=== PATIENT | male | born 2000 | race Two or more races ===

== ENCOUNTER 2025-02-09 16:40 | Emergency (ER) | payer MEDICAID, OTHER, SELFPAY ==
[~2025-02-09] VITALS: Ht 172.7 cm; Wt 92.3 kg
--- NOTE | 2025-02-09 17:39 | DVH ---
CLINICAL HISTORY: NECK PAIN TECHNIQUE: CT exam of the cervical spine was performed without intravenous contrast. This exam was pe rformed according to our departmental dose optimization program. Up-to-date CT equipment and radiatio n dose reduction techniques are utilized as appropriate. 25.62 CTDI: 25.62 DLP: 742.05 WID: COMPARISON: None FINDINGS: There is normal cervical alignment. The vertebral body heights are maintained. No acute cervical frac ture or subluxation is identified. No significant central or neural foraminal narrowing is identified . The paraspinous soft tissues are unremarkable. The lung apices are clear. IMPRESSION: 1. No acute fracture or traumatic malalignment.
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
[2025-02-09] MEDS ORDERED: HYDR-4798 PO (19:18)
[2025-02-09] MEDS ORDERED: ZOFR4T PO (19:18)
[2025-02-09] MEDS ORDERED: IBUP-1455 PO (19:18)
[2025-02-09] MEDS ORDERED: CEPH250C PO (19:19)
[2025-02-09] MEDS: HYDROcodone-ACET 10/325MG TAB PO ONE (19:26)
[2025-02-09] MEDS: ONDANSETRON ODT 4 MG TAB PO ONE (19:26)
[2025-02-09] MEDS: KETOROLAC TROMETH 60MG/2ML VIAL IM ONE (19:27)
[2025-02-09] MEDS: LIDOCAINE W/ EPINEPHRINE 1% 20ML VIAL ID ONE (19:32)
[2025-02-09] MEDS: LIDOCAINE 1% HCL (LOCAL ANESTH.) INJ 20ML MDV ONE (19:32)
[2025-02-09 20:21] VITALS: BP 126/71; PULSE 80; RESP 16; TEMP 98.3; O2SAT 100
== END 2025-02-09 20:27 | disposition home or self-care (01) ==
LOC: ER 16:40
DX: S01.81XA Laceration without foreign body of other part of head, initial encounter (principal); S16.1XXA Strain of muscle, fascia and tendon at neck level, initial encounter; S20.219A Contusion of unspecified front wall of thorax, initial encounter; Z88.0 Allergy status to penicillin; V43.52XA Car driver injured in collision with other type car in traffic accident, initial encounter; Y93.89 Activity, other specified; Y92.410 Unspecified street and highway as the place of occurrence of the external cause; Y99.8 Other external cause status
CPT/HCPCS: 12014; 70450; 71046; 72125; 96372; 99285; J1885; J2003; Q0162

== ENCOUNTER 2025-02-14 12:25 | Emergency (ER) | payer MEDICAID ==
[~2025-02-14] VITALS: Ht 172.7 cm; Wt 90.1 kg
[~2025-02-14 12:25] MED LIST: CEPH250C PO; HYDR-4798 PO; IBUP-1455 PO; ZOFR4T PO
[2025-02-14 13:05] VITALS: BP 156/94; PULSE 59; RESP 18; TEMP 98.1; O2SAT 99
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
[2025-02-14] MEDS ORDERED: HYDR-4798 PO (13:10)
[2025-02-14] MEDS: HYDROcodone-ACET 10/325MG TAB PO ONE (13:11)
== END 2025-02-14 13:37 | disposition home or self-care (01) ==
LOC: ER 12:25
DX: R51.9 Headache, unspecified (principal); Z79.899 Other long term (current) drug therapy; Z88.0 Allergy status to penicillin; Z76.0 Encounter for issue of repeat prescription; Z48.00 Encounter for change or removal of nonsurgical wound dressing; V89.2XXA Person injured in unspecified motor-vehicle accident, traffic, initial encounter; Y93.89 Activity, other specified; Y92.488 Other paved roadways as the place of occurrence of the external cause; Y99.8 Other external cause status

== ENCOUNTER 2025-02-18 09:58 | Emergency (ER) | payer MEDICAID ==
[~2025-02-18] VITALS: Ht 172.7 cm; Wt 94.0 kg
[2025-02-18 09:59] VITALS: BP 123/91; PULSE 77; RESP 16; TEMP 97.6; O2SAT 96
--- NOTE | 2025-02-18 10:27 | ED.PDOC ---
History of Present Illness(SKN HPI Comments 24-year-old male presents to the ER for suture removal. The patient reports on having stitches and diana placed at [facility] on the left forehead nine days ago and is requesting for them to be removed. Patient states on taking his infection medication associated with the Cardinal for chronic headache at night. Denies any other symptoms at this time. Chief Complaint: Wound Check Time Seen by MD: 10:20 History of Present Illness: Nurses Notes, Medications, Allergies Allergies: Coded Allergies: Penicillins (Verified Allergy, Unknown, 02/09/25) Home Meds Active Scripts Hydrocodone-Acetaminophen (Hydrocodone Bitartrate/AC 10-325 mg) 1 Tab Tab, 1 TAB PO Q8HP PRN, #10 TAB Prov:GISELA LANDEROS MD 02/14/25 Cephalexin (KEFLEX CAPSULE) 250 Mg Cp, 1 CAP PO QID for 7 Days, #28 CAP Prov:WILLIS GARCIA 02/09/25 Ondansetron Odt 4MG Tab (ZOFRAN PO) 4 Mg Tb, 4 MG PO Q6HP PRN, #10 TAB ODT TAB-DISSOLVE IN MOUTH, THEN SWALLOW Prov:WILLIS GARCIA 02/09/25 Ibuprofen Micronized (Ibuprofen) 800 Mg Tab, 800 MG PO Q8HP PRN, #20 TAB Prov:WILLIS GARCIA 02/09/25 Information Source: Patient Mode of Arrival: Ambulatory Severity: Moderate Timing: Days Duration: Since onset, Days Prehospital treatment: None Location: Head Mechanism: Preceding Wound Object: None Condition of Object: None Wound Type: None History of: None Associated Signs and Symptoms: Pain Past Medical History PAST MEDICAL HISTORY: Denies Surgical History: Denies all surgeries Family History Family History: Reviewed,noncontributory to illness, Unknown Social History Smoker: Non-Smoker Alcohol: Denies ETOH Use Drugs: Denies Drug Use Lives In: Home Constitutional: denies: chills, diaphoresis, fatigue, fever, malaise, sweats, weakness, others EENTM: denies: blurred vision, double vision, ear bleeding, ear discharge, ear drainage, ear pain, ear ringing, eye pain, eye redness, hearing loss, mouth pain, mouth swelling, nasal discharge, nose bleeding, nose congestion, nose pain, photophobia, tearing, throat pain, throat swelling, voice changes, others Respiratory: denies: cough, hemoptysis, orthopnea, SOB at rest, shortness of breath, SOB with excertion, stridor, wheezing, others Cardiovascular: denies: chest pain, dizzy spells, diaphoresis, Dyspnea on exertion, edema, irregular heart beat, left arm pain, lightheadedness, palpitations, PND, syncope, others Gastrointestinal: denies: abdomen distended, abdominal pain, blood streaked bowels, constipated, diarrhea, dysphagia, difficulty swallowing, hematemesis, melena, nausea, poor appetite, poor fluid intake, rectal bleeding, rectal pain, vomiting, others Genitourinary: denies: burning, dysuria, flank pain, frequency, hematuria, incontinence, penile discharge, penile sore, pain, testicle pain, testicle swelling, urgency, others Neurological: denies: dizziness, fainting, headache, left sided numbness, left sided weakness, numbness, paresthesia, pre-existing deficit, right sided numbness, right sided weakness, seizure, speech problems, tingling, tremors, weakness, others Musculoskeletal: denies: back pain, gout, joint pain, joint swelling, muscle pain, muscle stiffness, neck pain, others Integumetry: reports: others (Suture and staple removal of the foreign); denies: bruises, change in color, change in hair/nails, dryness, laceration, lesions, lumps, rash, wounds Allergic/Immunocompromised: denies: Difficulty Healing, Frequent Infections, Hives, Itching, others Hematologic/Lymphatic: denies: anemia, blood clots, easy bleeding, easy bruising, swollen glands, others Endocrine: denies: excessive hunger, excessive sweating, excessive thirst, excessive urination, flushing, intolerance to cold, intolerance to heat, unexplained weight gain, unexplained weight loss, others Psychiatric: denies: anxiety, bipolar disorder, depression, hopeless, panic disorder, schizophrenia, sleepless, suicidal, others All Other Systems: Reviewed and Negative Physical Exam General Appearance: No Apparent Distress, Normal HEENT: Normal ENT Inspection, Pharynx Normal, TMs Normal Neck: Full Range of Motion, Non-Tender, Normal, Normal Inspection Respiratory: Chest Non-Tender, Lungs Clear, No Accessory Muscle Use, No Respiratory Distress, Normal Breath Sounds Cardiovascular: No Edema, No JVD, No Murmur, No Gallop, Normal Peripheral Pulses, Regular Rate/Rhythm Breast Exam: Deferred Gastrointestinal: No Organomegaly, Non Tender, No Pulsatile Mass, Normal Bowel Sounds, Soft Genitalia: Deferred Pelvic: Deferred Rectal: Deferred Extremities: No calf tenderness, Normal capillary refill, Normal inspection, Normal range of motion, Non-tender, No pedal edema Musculoskeletal : Apperance: Normal Neurologic: Alert, side hemmer II-XII nml as Tested, No Motor Deficits, Normal Affect, Normal Mood, No Sensory Deficits Cerebellar Function: Normal Reflexes: Normal Skin: Dry, Normal Color, Warm Lymphatic: No Adenopathy Was a procedure done? Was a procedure done?: Yes Sedation Sedation?: No Other Procedure Procedure Staple removal of the forehead Success Yes eight out of eight diana removed Informed consent obtained: Yes Risks, benefits, and alternati: Yes Differential Diagnosis (INTG) Differential Diagnosis: Other X-Ray, Labs, Meds, VS Vital Signs Date Time Temp Pulse Resp B/P (MAP) Pulse Ox O2 Delivery O2 Flow Rate FiO2 02/18/25 09:59 97.6 77 16 123/91 96 97.6 X-Ray, Labs, Meds, VS Comment 24-year-old male presents to the ER with a chief complaint of staple in stitch removal. Patient arrives alert and oriented, ABC's intact, afebrile, vital signs stable, saturating well in room air 2 diana remaining d/t wound healing. Advised to return in 7 days for wound check Suture removal Additional MDM Review of External, Non-ED records: External records reviewed. Discussion with independent historian (EMS, family) history obtained from the patient/parents (if applicable) at bedside Chronic conditions affecting care: None Social determinants of health affecting care: None Time of 1ST Reevaluation: 10:50 Reevaluation 1ST: Unchanged Patient Education/Counseling: Diagnosis, Treatment, Prognosis Family Education/Counseling: No Family Present SEPSIS Sepsis Screen Date sepsis recognized/suspect: Feb 18, 2025 Time Sepsis recognized/suspect: 09 Recent Procedure: No On Antibiotic Therapy: No Respiratory Rate >20: No Heart Rate >90: No Temp<36 C (96.8 F) or >38.3 C: No SBP <90 or MAP <65 mmHG: No New Acute Mental Status Change: No Is the patient on CPAP, BIPAP,: No Vital Signs Date Time Temp Pulse Resp B/P (MAP) Pulse Ox O2 Delivery O2 Flow Rate FiO2 02/18/25 09:59 97.6 77 16 123/91 96 97.6 Departure 1 Departure Time of Disposition: 10:37 Impression: Primary Impression: Visit for wound check Disposition: HOME / SELF CARE / HOMELESS Condition: Stable Discharged With: Self Critical Care Note Critical Care Time?: No Stability Stability form required: No Heart Score Heart Score: Heart Score Response (Comments) Value History N/A 0 EKG N/A 0 Age N/A 0 Risk Factors N/A 0 Troponin N/A 0 Total 0 I personally scribed for KATERYNA MARIE NP ([email or web address]) on 02/18/25 at 10:27. Electronically submitted by Alex Saxena ([email or web address]). KATERYNA MARIE NP Feb 18, 2025 10:27
== END 2025-02-18 11:03 | disposition home or self-care (01) ==
LOC: ER 09:58
DX: S01.81XD Laceration without foreign body of other part of head, subsequent encounter (principal); Z48.02 Encounter for removal of sutures; Z88.0 Allergy status to penicillin; Z79.899 Other long term (current) drug therapy; X58.XXXD Exposure to other specified factors, subsequent encounter